=== PATIENT | male | born 1990 | race Caucasian/White ===

== ENCOUNTER 2018-01-04 06:13 | Day surgery (SDC) | payer OTHER ==
[2018-01-04] MEDS ORDERED: Propofol 10 mg/ml Inj (20 ML) ONE ×3 (07:56→08:09)
[2018-01-04] MEDS ORDERED: Midazolam 2 MG/2 ML VIAL ONE (07:57)
[2018-01-04] MEDS ORDERED: Lidocaine Hydrochloride 5 ML INJ ONE (07:58)
[2018-01-04] MEDS ORDERED: Lactated Ringer's 1,000 ML IV ONE (08:12)
--- NOTE | 2018-01-04 08:13 | CP.SDSHP ---
Same Day Surgery H & P - History Proposed Procedure: egd Pre-Op Diagnosis: Pre-operative evaluation for Bariatric surgery - Previous Medical/Surgical History Cardiac: Hypertension, Other (hypercholesterolemia) Endocrine/Metabolic: Obesity - Allergies Allergies: Allergies No Known Allergies Allergy (Verified 01/03/18 14:17) - Physical Exam General Appearance: Morbid obesity Vital Signs: Vital Signs 01/04/18 06:43 Temperature 97.7 F Pulse Rate 80 Respiratory 20 Rate Blood Pressure 150/96 H O2 Sat by Pulse 98 Oximetry Mental Status: Alert & Oriented x3 Neuro: WNL Heart: WNL Lungs: WNL GI: WNL - Impression Impression: preoperative evaluation for bariatric surgery Pt. Evaluated Today:Candidate for Anesthesia & Procedure: Yes - Date & Time Date: 01/04/18 Time: 08:13 Short Stay Discharge - Short Stay Discharge Admitting Diagnosis/Reason for Visit: MORBID OBESITY Disposition: HOME/ ROUTINE
[2018-01-04 08:46] VITALS: TEMP 99.1
[2018-01-04 09:14] VITALS: BP 118/62; PULSE 80; RESP 15; O2SAT 99
== END 2018-01-04 09:53 | disposition home or self-care (01) ==
LOC: C.ENDO 06:13
PROVIDERS: ATTEND Internal Medicine Gastroenterology
DX: Z01.818 Encounter for other preprocedural examination (principal); E66.01 Morbid (severe) obesity due to excess calories; K44.9 Diaphragmatic hernia without obstruction or gangrene; K29.00 Acute gastritis without bleeding; I10 Essential (primary) hypertension; E78.00 Pure hypercholesterolemia, unspecified
CPT/HCPCS: 43239; 88305; J2001; J2704; J7120

== ENCOUNTER 2018-03-28 17:01 | Emergency (ER) | payer OTHER ==
[2018-03-28 17:09] VITALS: BMI 61.5
[2018-03-28 17:13] VITALS: RESP 18
[2018-03-28] MEDS ORDERED: Sodium Chloride 0.9% 1,000 ML IV ONE (17:47)
--- NOTE | 2018-03-28 18:01 | C.PDOC ---
History Of Present Illness <Paula Keenan - Last Filed: 03/28/18 19:11> <Sharmila Nicole - Last Filed: 03/28/18 20:33> The patient is a 27 year old male whose PMHx includes morbid obesity and surgical history of gastric sleeve procedure done two months ago. Patient presents to the ED for evaluation of nausea and vomiting which which began 3 weeks ago. Patient has been evaluated by his surgeon, who increased his PPI to two times/day and started patient on Reglan. Patient reports his vomiting has continued and he complains of some abdominal pain. Otherwise, patient denies fever, chills, diarrhea. (Paula Keenan) History Per: Patient History/Exam Limitations: no limitations Onset/Duration Of Symptoms: Other (3 weeks ) Current Symptoms Are (Timing): Still Present Quality Of Discomfort: "Pain" Associated Symptoms: Nausea, Vomiting. denies: Fever, Chills Additional History Per: Patient <Paula Keenan - Last Filed: 03/28/18 19:11> <Sharmila Nicole - Last Filed: 03/28/18 20:33> Time Seen by Provider: 03/28/18 17:17 Chief Complaint (Nursing): GI Problem Past Medical History Reviewed: Historical Data, Nursing Documentation, Vital Signs - Medical History PMH: Bronchitis, Sleep Apnea (DX 12/2017 NO MACHINE) Denies: Chronic Kidney Disease Surgical History: Endoscopy Family History: States: Unknown Family Hx - Social History Hx Alcohol Use: No Hx Substance Use: No - Immunization History Hx Tetanus Toxoid Vaccination: No Hx Influenza Vaccination: No Hx Pneumococcal Vaccination: No <Paula Keenan - Last Filed: 03/28/18 19:11> Vital Signs: Last Vital Signs Temp 98.1 F 03/28/18 17:09 Pulse 90 03/28/18 17:09 Resp 18 03/28/18 17:09 BP 152/99 H 03/28/18 17:09 Pulse Ox 98 03/28/18 19:13 Review Of Systems Constitutional: Negative for: Fever, Chills Gastrointestinal: Positive for: Nausea, Vomiting, Abdominal Pain. Negative for : Diarrhea <Paula Keenan - Last Filed: 03/28/18 19:11> Physical Exam - Physical Exam Appears: Non-toxic, No Acute Distress, Other (morbidly obese ) Skin: Normal Color, Warm, Dry Head: Atraumatic, Normacephalic Eye(s): bilateral: Normal Inspection Oral Mucosa: Dry Neck: Supple Chest: Symmetrical, No Deformity, No Tenderness Cardiovascular: Rhythm Regular, Other (distant heart sounds ) Respiratory: Normal Breath Sounds, No Accessory Muscle Use, Other (distant lung sounds ) Gastrointestinal/Abdominal: Soft, No Tenderness, No Guarding, No Rebound Extremity: Normal ROM, Capillary Refill (less than 2 seconds ) Neurological/Psych: Oriented x3, Normal Speech, Normal Cognition <Paula Keenan - Last Filed: 03/28/18 19:11> ED Course And Treatment - Laboratory Results Result Diagrams: 03/28/18 18:08 03/28/18 18:08 O2 Sat by Pulse Oximetry: 98 (on RA) Pulse Ox Interpretation: Normal <Paula Keenan - Last Filed: 03/28/18 19:11> - Laboratory Results Result Diagrams: 03/28/18 18:08 03/28/18 18:08 Pulse Ox Interpretation: Normal Progress Note: spoke with dr sepulveda, is aware of all labs and ct results. Reevaluation Time: 20:29 Reassessment Condition: Improved <Sharmila Nicole - Last Filed: 03/28/18 20:33> Medical Decision Making <Paula Keenan - Last Filed: 03/28/18 19:11> <Sharmila Nicole - Last Filed: 03/28/18 20:33> Medical Decision Making: Impression: 27 year old male with nausea, vomiting and abdominal pain Plan: * bloodwork * urinalysis * IV Fluids * reassess and disposition Progress: Bloodwork and urinalysis ordered and reviewed. IV Fluids given. [address] Sepulveda, will get ct with iv contrast, eval for portal vein thrombosis. s/o to Dr Nicole to f/u (Paula Keenan) Disposition - Disposition Disposition Time: 19:13 <Paula Keenan - Last Filed: 03/28/18 19:11> Counseled Patient/Family Regarding: Studies Performed, Diagnosis, Need For Followup, Rx Given <Sharmila Nicole - Last Filed: 03/28/18 20:33> - Disposition Disposition: HOME/ ROUTINE Condition: STABLE Additional Instructions: Please follow up with dr Sepulveda Prescriptions: Ondansetron ODT [Zofran ODT] 1 odt PO BID PRN #15 odt PRN Reason: Nausea/Vomiting Instructions: Nausea and Vomiting, Adult (DC) Forms: [facility] [facility] (Bur[place]ian) - Clinical Impression Clinical Impression: Abdominal pain, Nausea, Vomiting - PA / DIRECTOR SECURITY RISK MANAGEMENT / Resident Statement MD/DO has reviewed & agrees with the documentation as recorded. - Scribe Statement The provider has reviewed the documentation as recorded by the Scribe (Laura Ibrahim) <Paula Keenan - Last Filed: 03/28/18 19:11> <Sharmila Nicole - Last Filed: 03/28/18 20:33> - Scribe Statement All medical record entries made by the Scribe were at my direction and personally dictated by me. I have reviewed the chart and agree that the record accurately reflects my personal performance of the history, physical exam, medical decision making, and the department course for this patient. I have also personally directed, reviewed, and agree with the discharge instructions and disposition. (Paula Keenan) Physician Patient Turnover Patient Signed Over To: Sharmila Nicole Handoff Comments: f/u ct scan and dispo accordingly <Paula Keenan - Last Filed: 03/28/18 19:11>
[2018-03-28] MEDS ORDERED: Sodium Chloride 0.9% 1,000 ML ONE (18:08)
[2018-03-28 18:12] LABS: BASO # 0.1 K/uL (0.0-0.2); BASO % 1.3 % (0.0-2.0); EOS # 0.2 K/uL (0.0-0.7); EOS % 1.9 % (0.0-4.0); HEMOGLOBIN 14.9 g/dL (12.0-18.0); LYMPH # 3.1 K/uL (1.0-4.3); LYMPH % 34.9 % (20.0-40.0); MEAN CORPUSCULAR HEMOGLOBIN 26.8 pg (27.0-31.0); MEAN CORPUSCULAR HGB CONC 33.9 g/dL (33.0-37.0); MEAN PLATELET VOLUME 8.3 fL (7.2-11.7); MONO # 0.9 K/uL (0.0-0.8); MONO % 10.6 % (0.0-10.0); NEUT # 4.5 K/uL (1.8-7.0); NEUT % 51.3 % (50.0-75.0); NRBC % 1.4 % (0.0-2.0); RBC 5.55 Mil/uL (4.40-5.90); RED CELL DISTRIBUTION WIDTH 14.6 % (11.5-14.5); WHITE BLOOD COUNT 8.8 K/uL (4.8-10.8)
[2018-03-28 18:24] LABS: ALB/GLOB RATIO 1.1 (1.0-2.1); ALBUMIN 4.2 g/dL (3.5-5.0); ALT/SGPT 57 U/L (21-72); AST/SGOT 30 U/L (17-59); BLOOD UREA NITROGEN 9 mg/dL (9-20); CALCIUM 9.4 mg/dl (8.6-10.4); GFR AFRICAN-AMERICAN > 60; GFR NON-AFRICAN AMERICAN > 60; LIPASE 189 U/L (23-300)
[2018-03-28] MEDS ORDERED: Potassium Chloride 20 mEq ER Tab PO ONE (18:38)
[2018-03-28 19:12] LABS: SQUAMOUS EPITHIAL 9 /hpf (0-5); URINE BILIRUBIN 2+ (NEGATIVE); URINE BLOOD NEGATIVE (NEGATIVE); URINE CLARITY Hazy (Clear); URINE GLUCOSE (UA) NORMAL (Normal); URINE LEUKOCYTE ESTERASE NEG Leu/uL (Negative); URINE PROTEIN 2+ mg/dL (NEGATIVE)
[2018-03-28 19:15] LABS: URINE COLOR YELLOW (YELLOW)
[2018-03-28] MEDS ORDERED: Iodixanol 320 MG/ML 100 ML BOTTLE IV ONE (19:24)
[2018-03-28] MEDS ORDERED: Potassium Chloride 10 mEq ER Tab PO STA (20:34)
[2018-03-28 20:41] VITALS: BP 112/75; PULSE 73; TEMP 98; O2SAT 100
[2018-03-29] MEDS ORDERED: Potassium Chloride 20 mEq ER Tab PO SCH (10:00)
--- NOTE | 2018-03-29 11:08 | CT ---
Date of service: 03/28/2018 PROCEDURE: CT Chest with contrast HISTORY: Epigastric pain ; hx gastric sleeve 2 m ago COMPARISON: None. TECHNIQUE: Contiguous axial images were obtained through the chest with intravenous contrast enhancement. Sagittal and coronal reconstructions were performed. Radiation dose (DLP): 1225.25 mGy-cm. This CT exam was performed using one or more of the following dose reduction techniques: Automated exposure control, adjustment of the mA and/or kV according to patient size, and/or use of iterative reconstruction technique. FINDINGS: LUNGS: The lungs are well inflated and clear. Visualized airway clear. MEDIASTINUM: The aorta is normal in caliber. Normal sized heart. No pericardial effusion. Main pulmonary artery unremarkable. No vascular congestion. No lymphadenopathy. PLEURA: No pleural fluid. No pneumothorax. BONES: No fracture. No destructive lesion. Within normal limits for the patient's age. UPPER ABDOMEN: Both adrenal glands are normal. Postsurgical changes of gastric sleeve surgery. OTHER FINDINGS: None. IMPRESSION: No acute findings. A preliminary report was provided by [facility].
== END 2018-03-28 21:03 | disposition home or self-care (01) ==
LOC: C.ER 17:01
DX: R11.2 Nausea with vomiting, unspecified (principal); R10.9 Unspecified abdominal pain; E66.01 Morbid (severe) obesity due to excess calories; Z98.84 Bariatric surgery status
CPT/HCPCS: 71260; 80053; 81001; 83690; 85025; 96361; 96374; 96375; 99285; J2405; J7030; Q9967

== ENCOUNTER 2018-04-09 15:44 | Observation (INO) | payer OTHER ==
[2018-04-09 15:44] VITALS: BMI 61.5
[2018-04-09] MEDS ORDERED: Sodium Chloride 0.9% 1,000 ML IV ONE (16:26)
[2018-04-09 16:48] LABS: BASO # 0.1 K/uL (0.0-0.2); BASO % 1.1 % (0.0-2.0); EOS # 0.2 K/uL (0.0-0.7); EOS % 2.8 % (0.0-4.0); HEMOGLOBIN 13.8 g/dL (12.0-18.0); LYMPH # 3.5 K/uL (1.0-4.3); MEAN CELL VOLUME 78.7 fL (80.0-94.0); MEAN CORPUSCULAR HEMOGLOBIN 26.6 pg (27.0-31.0); MEAN CORPUSCULAR HGB CONC 33.8 g/dL (33.0-37.0); MONO # 1.1 K/uL (0.0-0.8); MONO % 12.8 % (0.0-10.0); NEUT # 3.4 K/uL (1.8-7.0); NEUT % 41.3 % (50.0-75.0); NRBC % 0.7 % (0.0-2.0); RBC 5.16 Mil/uL (4.40-5.90); RED CELL DISTRIBUTION WIDTH 14.9 % (11.5-14.5); WHITE BLOOD COUNT 8.3 K/uL (4.8-10.8)
[2018-04-09] MEDS ORDERED: Sodium Chloride 0.9% 1,000 ML ONE (16:51)
--- NOTE | 2018-04-09 16:56 | C.PDOC ---
History Of Present Illness 27 year old male states that he had gastric bypass surgery 2 months ago. From there he was not eating or drinking normally, and felt he was progressively getting weaker. Ultimately, he was hospitalized at [place]. He was dehydrated and hypokalemic and was given an IV potassium infusion. Patient was hospitalized for several days and was discharged home. At home he had an episode of weakness and was unable to walk up some steps. He fell on both knees and was unable to get up. The fire department was called and they helped him crawl up the stairs. After several days patient continued to feel pain in both knees and weakness in his legs. Patient was seen 3 days ago at [facility]. They did X-ray' s on both knees and found no fractures. They put on leg braces, gave him crutches, and discharged him. Patient states he still can't walk and feels weak. Patient states pain is still present in his knees. Patient states he cannot stand and bare his own weight. Denies back pain , bladder/bowl changes, numbness/tingling in feet. Patient was brought by EMS who stated that he was unable to stand and romario bear or walk at home. Time Seen by Provider: 04/09/18 16:14 Chief Complaint (Nursing): Lower Extremity Problem/Injury History Per: Patient History/Exam Limitations: no limitations Onset/Duration Of Symptoms: Days Current Symptoms Are (Timing): Still Present Recent travel outside of the [facility]: No - Knee Description Of Injury: Fell Currently Unable To: Bear Weight Past Medical History Reviewed: Historical Data, Nursing Documentation, Vital Signs Vital Signs: Last Vital Signs Temp 98.8 F 04/09/18 15:55 Pulse 110 H 04/09/18 15:55 Resp 17 04/09/18 15:55 BP 129/86 04/09/18 15:55 Pulse Ox 98 04/09/18 17:40 - Medical History PMH: Bronchitis, Sleep Apnea (DX 12/2017 NO MACHINE) Denies: Chronic Kidney Disease Surgical History: Endoscopy Family History: States: No Known Family Hx - Social History Hx Alcohol Use: No Hx Substance Use: No - Immunization History Hx Tetanus Toxoid Vaccination: No Hx Influenza Vaccination: No Hx Pneumococcal Vaccination: No Review Of Systems Constitutional: Positive for: Weakness Cardiovascular: Negative for: Chest Pain Gastrointestinal: Negative for: Diarrhea, Constipation Genitourinary: Negative for: Dysuria Musculoskeletal: Positive for: Leg Pain. Negative for: Back Pain Neurological: Negative for: Weakness, Numbness Physical Exam - Physical Exam Appears: Non-toxic Skin: Warm Head: Atraumatic, Normacephalic Eye(s): bilateral: Normal Inspection Oral Mucosa: Moist Chest: Symmetrical Cardiovascular: Rhythm Regular Respiratory: Normal Breath Sounds Gastrointestinal/Abdominal: Soft, No Tenderness Back: No CVA Tenderness Extremity: Normal ROM, Tenderness (bilateral knees. No affsuion, no point tenderness), No Swelling, No Other (erythema) Extremity: Bilateral: Atraumatic, Normal ROM, Unable To Bear Weight Pulses: Left Dorsalis Pedis: Normal, Right Dorsalis Pedis: Normal Neurological/Psych: Oriented x3, Normal Speech, Normal Cognition, Normal Cranial Nerves, No Normal Motor (weakness of peripheral legs), Normal Sensation , Normal Reflexes Gait: Unable To Assess (patient unable to stand and hold his own weight.) Extremity: Right: Falls Before 10 Secs (peripheral weakness), Left: Falls Before 10 Secs, Lower: Falls Before 10 Secs ED Course And Treatment - Laboratory Results Result Diagrams: 04/09/18 16:45 04/09/18 16:45 Lab Interpretation: No Acute Changes O2 Sat by Pulse Oximetry: 98 (RA) Pulse Ox Interpretation: Normal Reevaluation Time: 17:31 Reassessment Condition: Unchanged (Patient states that he cannot stand or walk.) - Physician Consult Information Time Consulting Physician Contacted: 17:31 Physician Contacted: Fabián Ibrahim Outcome Of Conversation: Patient unable to manage at home and will be admitted for evaluation of leg weakness. Medical Decision Making Medical Decision Making: Impression: weakness in the legs. Plan: * labs * IV fluids Disposition - Disposition Disposition: HOSPITALIZED Disposition Time: 17:44 Condition: STABLE Instructions: Weakness (ED) - POA Present On Arrival: Falls Or Trauma - Clinical Impression Clinical Impression: Leg weakness, bilateral - Scribe Statement The provider has reviewed the documentation as recorded by the Germain Kenyoned Provider Attestation: All medical record entries made by the Germain were at my direction and personally dictated by me. I have reviewed the chart and agree that the record accurately reflects my personal performance of the history, physical exam, medical decision making, and the department course for this patient. I have also personally directed, reviewed, and agree with the discharge instructions and disposition.
[2018-04-09 17:04] LABS: ALB/GLOB RATIO 1.2 (1.0-2.1); ALBUMIN 4.3 g/dL (3.5-5.0); ALT/SGPT 107 U/L (21-72); AST/SGOT 58 U/L (17-59); BLOOD UREA NITROGEN 17 mg/dL (9-20); CALCIUM 9.4 mg/dl (8.6-10.4); GFR AFRICAN-AMERICAN > 60; GFR NON-AFRICAN AMERICAN > 60
[2018-04-09 19:48] VITALS: RESP 20
[2018-04-09 21:27] LABS: D DIMER < 200 ng/mlDDU (0-243); INR 1.2; PARTIAL THROMBOPLASTIN TIME 34 SECONDS (21-34); PROTHROMBIN TIME 13.5 SECONDS (9.7-12.2)
[2018-04-09] MEDS ORDERED: Enoxaparin 40 mg Syringe SC ONE (21:53)
[2018-04-09] MEDS: Sodium Chloride 0.9% 1,000 ML IV SCH (22:26)
--- NOTE | 2018-04-09 22:34 | CP.PCM.HP ---
<Lona Rinaldi - Last Filed: 04/10/18 03:02> History of Present Illness - History of Present Illness History of Present Illness: 27 yo M w/ PMHx of morbid obesity, DM2, glaucoma s/p sleeve gastrectomy(01/19) presented to ED today w/ complaints of B/L LE pain and weakness, unable to bear weight. Patient reports he is s/p sleeve at [facility], compliant w/ recommendations including vitamins/supplements, and has since had a complicated recovery. He was unable to tolerate an advance in diet and began having post prandial emesis x3 weeks. EGD revealed inadequate space to accomodate food. He reports a 100+ lb weight loss. Pt placed on Reglan and Omeprazole whiched helped. Pt also began feeling generalized weakness during this time, and weight bearing became increasingly difficult. Pt visited [facility] 04/04 w/ complaints, and had K repletion. He then sustained a fall going up stairs landing on his knees, no LOC. Pt went to [facility] 03/06 due to increasing knee pain but reports x-rays were negative. Pt now presents w/ continued weakness of LE, inability to bear weight, and B/L knee pain R>L. Pt admits to decreased sensation knee down on RLE and R calf pain. Pt has been bed bound >1 week. Pt denies chest pain, SOB, abd pain, dysuria, diarrhea, incontinence, numbness. Present on Admission - Present on Admission Any Indicators Present on Admission: No Review of Systems - Constitutional Constitutional: Frequent Falls, Weight Loss (100 lbs s/p sleeve), Weakness - Cardiovascular Cardiovascular: absent: Chest Pain, Dyspnea, Palpitations, Pedal Edema - Respiratory Respiratory: absent: Cough, Dyspnea - Gastrointestinal Gastrointestinal: Change in Bowel Habits (less frequent BM), Early Satiety, Nausea, Vomiting. absent: Abdominal Pain, Fecal Incontinence - Genitourinary Genitourinary: absent: Urinary Incontinence - Musculoskeletal Musculoskeletal: Arthralgias, Joint Swelling (R>L), Muscle Weakness, Other ( decreased sensation) - Integumentary Integumentary: Swelling - Neurological Neurological: Weakness Past Patient History - Past Medical History & Family History Past Medical History?: Yes - Past Social History Smoking Status: Never Smoked - CARDIAC Hx Cardiac Disorders: No - PULMONARY Hx Bronchitis: Yes Hx Sleep Apnea: Yes (DX 12/2017 NO MACHINE) - NEUROLOGICAL Hx Neurological Disorder: No - HEENT Hx HEENT Problems: Yes Hx Glaucoma: Yes - RENAL Hx Chronic Kidney Disease: No - ENDOCRINE/METABOLIC Hx Endocrine Disorders: No - HEMATOLOGICAL/ONCOLOGICAL Hx Blood Disorders: No - INTEGUMENTARY Hx Dermatological Problems: No - MUSCULOSKELETAL/RHEUMATOLOGICAL Hx Musculoskeletal Disorders: No - GASTROINTESTINAL Hx Gastrointestinal Disorders: No - GENITOURINARY/GYNECOLOGICAL Hx Genitourinary Disorders: No - PSYCHIATRIC Hx Substance Use: No - SURGICAL HISTORY Other/Comment: gastric sleeve 01/18/2018 - ANESTHESIA Hx Anesthesia: Yes Hx Anesthesia Reactions: No Hx Malignant Hyperthermia: No Meds Allergies/Adverse Reactions: Allergies Allergy/AdvReac Type Severity Reaction Status Date / Time No Known Allergies Allergy Verified 04/09/18 16:00 Physical Exam - Constitutional Appears: Well, Non-toxic, No Acute Distress - Head Exam Head Exam: ATRAUMATIC, NORMAL INSPECTION, NORMOCEPHALIC - Eye Exam Eye Exam: EOMI, Normal appearance - ENT Exam ENT Exam: Mucous Membranes Moist, Normal Exam - Respiratory Exam Respiratory Exam: Clear to Auscultation Bilateral, NORMAL BREATHING PATTERN. absent: Rhonchi, Wheezes - Cardiovascular Exam Cardiovascular Exam: REGULAR RHYTHM, +S1, +S2 - GI/Abdominal Exam GI & Abdominal Exam: Normal Bowel Sounds, Soft. absent: Distended, Tenderness - Extremities Exam Extremities exam: Positive for: calf tenderness, joint swelling, normal capillary refill, pedal pulses present (right calf tenderness). Negative for: pedal edema - Back Exam Back exam: NORMAL INSPECTION. absent: tenderness Results - Vital Signs Recent Vital Signs: Last Vital Signs Temp 98 F 04/09/18 19:40 Pulse 92 H 04/09/18 19:40 Resp 20 04/09/18 19:40 BP 112/71 04/09/18 19:40 Pulse Ox 98 04/09/18 19:40 - Labs Result Diagrams: 04/09/18 16:45 04/09/18 16:45 Labs: Laboratory Results - last 24 hr 04/09/18 04/09/18 04/09/18 15:53 16:45 16:45 WBC 8.3 RBC 5.16 Hgb 13.8 Hct 40.6 MCV 78.7 L MCH 26.6 L MCHC 33.8 RDW 14.9 H Plt Count 392 MPV 8.0 Neut % (Auto) 41.3 L Lymph % (Auto) 42.0 H Runnels % (Auto) 12.8 H Eos % (Auto) 2.8 Baso % (Auto) 1.1 Neut # (Auto) 3.4 Lymph # (Auto) 3.5 Runnels # (Auto) 1.1 H Eos # (Auto) 0.2 Baso # (Auto) 0.1 PT INR APTT D-Dimer, Quantitative Sodium 139 Potassium 3.9 Chloride 102 Carbon Dioxide 23 Anion Gap 19 BUN 17 Creatinine 0.7 L Est GFR ( Amer) > 60 Est GFR (Non-Af Amer) > 60 POC Glucose (mg/dL) 117 H Random Glucose 119 H Calcium 9.4 Total Bilirubin 1.3 AST 58 ALT 107 H D Alkaline Phosphatase 93 Total Creatine Kinase 40 L Total Protein 7.7 Albumin 4.3 Globulin 3.5 Albumin/Globulin Ratio 1.2 04/09/18 20:27 WBC RBC Hgb Hct MCV MCH MCHC RDW Plt Count MPV Neut % (Auto) Lymph % (Auto) Runnels % (Auto) Eos % (Auto) Baso % (Auto) Neut # (Auto) Lymph # (Auto) Runnels # (Auto) Eos # (Auto) Baso # (Auto) PT 13.5 H INR 1.2 APTT 34 D-Dimer, Quantitative < 200 Sodium Potassium Chloride Carbon Dioxide Anion Gap BUN Creatinine Est GFR ( Amer) Est GFR (Non-Af Amer) POC Glucose (mg/dL) Random Glucose Calcium Total Bilirubin AST ALT Alkaline Phosphatase Total Creatine Kinase Total Protein Albumin Globulin Albumin/Globulin Ratio Assessment & Plan - Assessment and Plan (Free Text) Assessment: 27 yo M w/ PMHx of DM2 and glaucoma, s/p lap sleeve gastrectomy admitted w/ LE weakness 2/2 maltrunition. 1. Malnutrition 2/2 sleeve gastrectomy -multivitamins -f/u b12, folate, iron labs -small bariatric meals as tolerated -f/u am labs, replete as needed -nutrition referral 2. Emesis 2/2 sleeve gastrectomy -reglan 10mg BID 3. r/o DVT-right calf tenderness -D-dimer <200 -no indication for further workup 4. s/p fall 2/2 weakness 2/2 malnutrition -fall precautions -PT -OT -obtain x-rays from [facility] 5. DM2 -resolved s/p sleeve gastrectomy 6. Glaucoma -timolol .5% OU 7. Ppx -lovenox 40sc -protonix 40mg PO -fall risk Dispo: Pt in need of CESIA - Date & Time Date: 04/09/18 Time: 20:05 Decision To Admit - Pt Status Changed To: Hospital Disposition Of: Observation - . Bed Request Type: Regular <Misael Ma - Last Filed: 04/10/18 06:02> Results - Vital Signs Recent Vital Signs: Last Vital Signs Temp 98.1 F 04/09/18 23:27 Pulse 85 04/09/18 23:27 Resp 20 04/09/18 23:27 BP 145/82 04/09/18 23:27 Pulse Ox 99 04/09/18 23:27 - Labs Result Diagrams: 04/09/18 16:45 04/09/18 16:45 Labs: Laboratory Results - last 24 hr 04/09/18 04/09/18 04/09/18 15:53 16:45 16:45 WBC 8.3 RBC 5.16 Hgb 13.8 Hct 40.6 MCV 78.7 L MCH 26.6 L MCHC 33.8 RDW 14.9 H Plt Count 392 MPV 8.0 Neut % (Auto) 41.3 L Lymph % (Auto) 42.0 H Runnels % (Auto) 12.8 H Eos % (Auto) 2.8 Baso % (Auto) 1.1 Neut # (Auto) 3.4 Lymph # (Auto) 3.5 Runnels # (Auto) 1.1 H Eos # (Auto) 0.2 Baso # (Auto) 0.1 PT INR APTT D-Dimer, Quantitative Sodium 139 Potassium 3.9 Chloride 102 Carbon Dioxide 23 Anion Gap 19 BUN 17 Creatinine 0.7 L Est GFR ( Amer) > 60 Est GFR (Non-Af Amer) > 60 POC Glucose (mg/dL) 117 H Random Glucose 119 H Calcium 9.4 Total Bilirubin 1.3 AST 58 ALT 107 H D Alkaline Phosphatase 93 Total Creatine Kinase 40 L Total Protein 7.7 Albumin 4.3 Globulin 3.5 Albumin/Globulin Ratio 1.2 04/09/18 20:27 WBC RBC Hgb Hct MCV MCH MCHC RDW Plt Count MPV Neut % (Auto) Lymph % (Auto) Runnels % (Auto) Eos % (Auto) Baso % (Auto) Neut # (Auto) Lymph # (Auto) Runnels # (Auto) Eos # (Auto) Baso # (Auto) PT 13.5 H INR 1.2 APTT 34 D-Dimer, Quantitative < 200 Sodium Potassium Chloride Carbon Dioxide Anion Gap BUN Creatinine Est GFR ( Amer) Est GFR (Non-Af Amer) POC Glucose (mg/dL) Random Glucose Calcium Total Bilirubin AST ALT Alkaline Phosphatase Total Creatine Kinase Total Protein Albumin Globulin Albumin/Globulin Ratio Assessment & Plan - Date & Time Date: 04/10/18 (I have seen and examined the patient. I agree with the findings and plan of care as documented by Dr. Rinaldi. Patient with malnutrition , poor intake s/p sleeve gastrectomy. Nutrition consult. Ensure with meals. Treat patient's nausea to improve intake. Recent fall onto knees due to general weakness likely secondary to malnutrition. Contact [facility] for recent scans. If unable to obtain, will order new Xrays of knees. Monitor for acute changes.) Time: 05:58 Attending/Attestation - Attestation I have personally seen and examined this patient.: Yes I have fully participated in the care of the patient.: Yes I have reviewed all pertinent clinical information: Yes
[2018-04-10] MEDS: Sodium Chloride 0.9% 1,000 ML IV SCH ×2 (05:51→14:00)
[2018-04-10 08:40] LABS: IRON 48 ug/dL (49-181)
[2018-04-10 08:49] LABS: % IRON SATURATION 23 (20-55); TOTAL IRON BINDING CAPACITY 207 ug/dL (250-450)
[2018-04-10] MEDS: Enoxaparin 40 mg Syringe SC SCH (09:26)
[2018-04-10] MEDS: Multiple Vitamins Tab PO SCH (09:27)
[2018-04-10] MEDS: Pantoprazole 40 mg EC Tab PO SCH (09:27)
[2018-04-10 09:46] LABS: FOLATE 7.1 ng/mL
[2018-04-10 11:20] LABS: BASO # 0.1 K/uL (0.0-0.2); BASO % 0.8 % (0.0-2.0); EOS # 0.3 K/uL (0.0-0.7); HEMOGLOBIN 12.2 g/dL (12.0-18.0); LYMPH # 3.6 K/uL (1.0-4.3); LYMPH % 41.6 % (20.0-40.0); MEAN CORPUSCULAR HEMOGLOBIN 26.9 pg (27.0-31.0); MEAN PLATELET VOLUME 8.1 fL (7.2-11.7); MONO # 1.2 K/uL (0.0-0.8); MONO % 13.9 % (0.0-10.0); NEUT # 3.5 K/uL (1.8-7.0); NEUT % 40.7 % (50.0-75.0); NRBC % 0.3 % (0.0-2.0); PLATELET COUNT 381 K/uL (130-400); RBC 4.55 Mil/uL (4.40-5.90); RED CELL DISTRIBUTION WIDTH 14.7 % (11.5-14.5); WHITE BLOOD COUNT 8.6 K/uL (4.8-10.8)
[2018-04-10 11:35] LABS: ALB/GLOB RATIO 1.2 (1.0-2.1); ALBUMIN 3.8 g/dL (3.5-5.0); ALT/SGPT 95 U/L (21-72); AST/SGOT 42 U/L (17-59); BLOOD UREA NITROGEN 14 mg/dL (9-20); CALCIUM 9.1 mg/dl (8.6-10.4); GFR AFRICAN-AMERICAN > 60; GFR NON-AFRICAN AMERICAN > 60
[2018-04-10 12:08] LABS: BANDS 3 % (0-2); EOSINOPHIL 2 % (0-4); LYMPHOCYTE 45 % (20-40); MONOCYTE 13 % (0-10); NEUTROPHIL 37 % (50-75); TOTAL CELLS COUNTED 100
[2018-04-10 12:09] LABS: ANISOCYTOSIS SLIGHT; LARGE PLATELETS PRESENT; OVALOCYTES SLIGHT; PLATELET ESTIMATE NORMAL (NORMAL)
--- NOTE | 2018-04-10 17:08 | CP.PCM.PN ---
Subjective - Date & Time of Evaluation Date of Evaluation: 04/10/18 Time of Evaluation: 07:00 - Subjective Subjective: PGY2- Progress Note for Dr. Harper Patient seen and examined at bedside. Patient says he is still very weak. Patient cannot walk around. Patient says he can only eat small amounts at a time. Patient says he has no improvement as compared to yesterday. Patient denies any chest pain, shortness of breath, abdominal pain, nausea, vomiting, or constipation. Objective - Vital Signs/Intake and Output Vital Signs (last 24 hours): Temp Pulse Resp BP Pulse Ox 98.6 F 77 20 142/87 98 04/10/18 16:00 04/10/18 16:00 04/10/18 16:00 04/10/18 16:00 04/10/18 16:00 Intake and Output: 04/10/18 04/10/18 06:59 18:59 Intake Total 1240 Output Total 500 Balance 740 - Medications Medications: Current Medications Enoxaparin Sodium (Lovenox) 40 mg SC DAILY [facility] Last Admin: 04/10/18 09:26 Dose: 40 mg Sodium Chloride (Sodium Chloride 0.9%) 1,000 mls @ 125 mls/hr IV .Q8H [facility] Last Admin: 04/10/18 14:00 Dose: 125 mls/hr Metoclopramide HCl (Reglan) 10 mg PO BID [facility] Last Admin: 04/10/18 09:27 Dose: 10 mg Multivitamins (Hexavitamin) 1 tab PO DAILY [facility] Last Admin: 04/10/18 09:27 Dose: 1 tab Pantoprazole Sodium (Protonix Ec Tab) 40 mg PO DAILY [facility] Last Admin: 04/10/18 09:27 Dose: 40 mg Pneumococcal Polyvalent Vaccine (Pneumovax 23 Vaccine) 0.5 ml IM .ONCE ONE Stop: 04/12/18 10:01 Timolol Maleate (Timoptic 0.5% Ophth Soln) 1 drop OU BID [facility] Last Admin: 04/10/18 09:25 Dose: 1 drop - Labs Labs: 04/10/18 11:12 04/10/18 11:12 PT 13.5 SECONDS (9.7-12.2) H 04/09/18 20:27 INR 1.2 04/09/18 20:27 APTT 34 SECONDS (21-34) 04/09/18 20:27 - Constitutional Appears: Non-toxic, No Acute Distress, Other (morbid obesity ) - Head Exam Head Exam: ATRAUMATIC, NORMAL INSPECTION, NORMOCEPHALIC - Eye Exam Eye Exam: EOMI, Normal appearance - ENT Exam ENT Exam: Mucous Membranes Moist - Respiratory Exam Respiratory Exam: Decreased Breath Sounds, NORMAL BREATHING PATTERN - Cardiovascular Exam Cardiovascular Exam: REGULAR RHYTHM, RRR, +S1, +S2 - GI/Abdominal Exam GI & Abdominal Exam: Soft, Normal Bowel Sounds. absent: Tenderness - Extremities Exam Extremities Exam: Normal Inspection. absent: Tenderness - Neurological Exam Neurological Exam: Alert, Awake, Oriented x3 - Psychiatric Exam Psychiatric exam: Normal Affect, Normal Mood - Skin Skin Exam: Intact, Normal Color, Warm Assessment and Plan - Assessment and Plan (Free Text) Assessment: Malnutrition 2/2 sleeve gastrectomy -multivitamins -b12: 969 -folate: 7.1 - Iron: 48, TIBC: 207, %sat: 23 -small bariatric meals as tolerated -f/u am labs, replete as needed -nutrition referral Emesis 2/2 sleeve gastrectomy -reglan 10mg BID r/o DVT -D-dimer <200 -f/u LE b/l dopplers s/p fall 2/2 weakness 2/2 malnutrition -fall precautions -PT -OT -[place] [facility] Vitamin D deficiency Vit D 18.8 Vit D 50,000 u weekly for 12 weeks DM2 -resolved s/p sleeve gastrectomy Glaucoma -timolol .5% OU Ppx -lovenox 40sc -protonix 40mg PO -fall risk Dispo: Pt in need of [facility] Discussed with Dr. Harper
[2018-04-10] MEDS ORDERED: Ergocalciferol 50,000 Intl Units Cap PO SCH (18:15)
[2018-04-11 08:13] LABS: BASO # 0.1 K/uL (0.0-0.2); BASO % 0.7 % (0.0-2.0); EOS # 0.3 K/uL (0.0-0.7); EOS % 3.4 % (0.0-4.0); HEMOGLOBIN 12.4 g/dL (12.0-18.0); LYMPH # 3.9 K/uL (1.0-4.3); LYMPH % 40.7 % (20.0-40.0); MEAN CELL VOLUME 78.6 fL (80.0-94.0); MEAN CORPUSCULAR HEMOGLOBIN 27.1 pg (27.0-31.0); MEAN CORPUSCULAR HGB CONC 34.5 g/dL (33.0-37.0); MEAN PLATELET VOLUME 8.1 fL (7.2-11.7); MONO # 1.1 K/uL (0.0-0.8); MONO % 11.4 % (0.0-10.0); NEUT # 4.2 K/uL (1.8-7.0); NEUT % 43.8 % (50.0-75.0); NRBC % 0.2 % (0.0-2.0); RBC 4.57 Mil/uL (4.40-5.90); RED CELL DISTRIBUTION WIDTH 14.5 % (11.5-14.5); WHITE BLOOD COUNT 9.7 K/uL (4.8-10.8)
[2018-04-11 08:17] LABS: ALB/GLOB RATIO 1.2 (1.0-2.1); ALBUMIN 3.8 g/dL (3.5-5.0); ALT/SGPT 90 U/L (21-72); AST/SGOT 45 U/L (17-59); BLOOD UREA NITROGEN 11 mg/dL (9-20); CALCIUM 9.3 mg/dl (8.6-10.4); GFR AFRICAN-AMERICAN > 60; GFR NON-AFRICAN AMERICAN > 60
[2018-04-11] MEDS: Enoxaparin 40 mg Syringe SC SCH (10:23)
[2018-04-11] MEDS: Pantoprazole 40 mg EC Tab PO SCH (10:23)
[2018-04-11] MEDS: Multiple Vitamins Tab PO SCH (10:23)
--- NOTE | 2018-04-11 13:10 | CP.PCM.PN ---
Subjective - Date & Time of Evaluation Date of Evaluation: 04/11/18 Time of Evaluation: 07:00 - Subjective Subjective: PGY2- Progress Note for Dr. Lovett Patient seen and examined at bedside. Patient says he still has the weak sensation in his legs. Patient admits to sometimes feeling dizzy if he tries to get up. Patient denies any headache, shortness of breath, chest pain, abdominal pain, nausea, vomiting, constipation, or diarrhea. Objective - Vital Signs/Intake and Output Vital Signs (last 24 hours): Temp Pulse Resp BP Pulse Ox 98.8 F 92 H 20 144/79 97 04/11/18 08:02 04/11/18 08:02 04/11/18 08:02 04/11/18 08:02 04/11/18 08:02 Intake and Output: 04/11/18 04/11/18 06:59 18:59 Intake Total 240 Output Total 500 Balance -260 - Medications Medications: Current Medications Enoxaparin Sodium (Lovenox) 40 mg SC DAILY [facility] Last Admin: 04/11/18 10:23 Dose: 40 mg Ergocalciferol (Drisdol 50,000 Intl Units Cap) 1 cap PO Q7D [facility] Stop: 06/26/18 18:16 Last Admin: 04/10/18 21:29 Dose: 1 cap Potassium Chloride (Potassium Chloride 10 Meq/100 Ml) 10 meq in 100 mls @ 100 mls/hr IVPB ONCE ONE Stop: 04/11/18 14:02 Metoclopramide HCl (Reglan) 5 mg IVP Q6H [facility] Multivitamins (Hexavitamin) 1 tab PO DAILY [facility] Last Admin: 04/11/18 10:23 Dose: 1 tab Pantoprazole Sodium (Protonix Inj) 40 mg IVP DAILY [facility] Pneumococcal Polyvalent Vaccine (Pneumovax 23 Vaccine) 0.5 ml IM .ONCE ONE Stop: 04/12/18 10:01 Timolol Maleate (Timoptic 0.5% Oph Soln) 1 drop OU BID [facility] Last Admin: 04/10/18 17:30 Dose: 1 drop - Labs Labs: 04/11/18 07:42 04/11/18 07:42 PT 13.5 SECONDS (9.7-12.2) H 04/09/18 20:27 INR 1.2 04/09/18 20:27 APTT 34 SECONDS (21-34) 04/09/18 20:27 - Additional Findings Additional findings: - Constitutional Appears: Non-toxic, No Acute Distress, Other (morbid obesity ) - Head Exam Head Exam: ATRAUMATIC, NORMAL INSPECTION, NORMOCEPHALIC - Eye Exam Eye Exam: EOMI, Normal appearance - ENT Exam ENT Exam: Mucous Membranes Moist - Respiratory Exam Respiratory Exam: Decreased Breath Sounds, NORMAL BREATHING PATTERN - Cardiovascular Exam Cardiovascular Exam: REGULAR RHYTHM, RRR, +S1, +S2 - GI/Abdominal Exam GI & Abdominal Exam: Soft, Normal Bowel Sounds. absent: Tenderness - Extremities Exam Extremities Exam: Normal Inspection. 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 Ozuna consulted, help appreciated upper gi series with small bowel follow through ordered based on results may need endoscopy with Dr. Ozuna on Wednesday (04/13) -reglan 5mg ivp q6h Emesis 2/2 sleeve gastrectomy -reglan 5mg ivp q6h r/o DVT -D-dimer <200 -f/u LE b/l dopplers s/p fall 2/2 weakness 2/2 malnutrition -fall precautions -PT -OT -f/u lumbar spine xray Vitamin D deficiency Vit D 18.8 Vit D 50,000 u weekly for 12 weeks DM2 -resolved s/p sleeve gastrectomy Glaucoma -timolol .5% OU Ppx -lovenox 40sc -protonix 40mg ivp daily -fall risk -PT recommends acute rehab -OT Discussed with Dr. Lovett
[2018-04-12 06:04] LABS: BASO # 0.1 K/uL (0.0-0.2); BASO % 0.6 % (0.0-2.0); EOS # 0.3 K/uL (0.0-0.7); EOS % 3.4 % (0.0-4.0); HEMOGLOBIN 12.5 g/dL (12.0-18.0); LYMPH # 3.6 K/uL (1.0-4.3); LYMPH % 40.8 % (20.0-40.0); MEAN CELL VOLUME 78.5 fL (80.0-94.0); MEAN CORPUSCULAR HGB CONC 34.3 g/dL (33.0-37.0); MEAN PLATELET VOLUME 7.9 fL (7.2-11.7); MONO % 11.3 % (0.0-10.0); NEUT # 3.9 K/uL (1.8-7.0); NEUT % 43.9 % (50.0-75.0); NRBC % 0.2 % (0.0-2.0); RBC 4.65 Mil/uL (4.40-5.90); RED CELL DISTRIBUTION WIDTH 14.4 % (11.5-14.5); WHITE BLOOD COUNT 8.8 K/uL (4.8-10.8)
[2018-04-12 07:31] LABS: ALB/GLOB RATIO 1.2 (1.0-2.1); ALBUMIN 3.8 g/dL (3.5-5.0); ALT/SGPT 88 U/L (21-72); AST/SGOT 63 U/L (17-59); BLOOD UREA NITROGEN 13 mg/dL (9-20); CALCIUM 9.3 mg/dl (8.6-10.4); GFR AFRICAN-AMERICAN > 60; GFR NON-AFRICAN AMERICAN > 60
[2018-04-12] MEDS: Enoxaparin 40 mg Syringe SC SCH (09:59)
[2018-04-12] MEDS: Multiple Vitamins Tab PO SCH (09:59)
[2018-04-12] MEDS ORDERED: Pneumococcal 23-Valent Vaccine IM ONE (10:00)
[2018-04-12] MEDS ORDERED: Barium Sulfate for Susp 96% w/w 176g Bottle PR ONE ×2 (10:17→10:18)
[2018-04-12] MEDS ORDERED: Barium Sulfate for Susp 98% w/w 340g Bottle ONE (10:18)
--- NOTE | 2018-04-12 10:29 | CP.PCM.PN ---
Subjective - Date & Time of Evaluation Date of Evaluation: 04/12/18 Time of Evaluation: 07:00 - Subjective Subjective: PGY3- Progress Note for Dr. Turcios: Patient seen and examined at bedside. Patient says he is still very weak and says he has no improvement as compared to yesterday. PAtient has GI exam done today but will be transferred to [facility] under the care of bariatric surgery there. He admits to bilateral knee pain since his fall 2 weeks ago. Patient denies any chest pain, shortness of breath, abdominal pain, nausea, vomiting, or constipation. Objective - Vital Signs/Intake and Output Vital Signs (last 24 hours): Temp Pulse Resp BP Pulse Ox 97.8 F 90 20 123/74 97 04/12/18 07:51 04/12/18 07:51 04/12/18 07:51 04/12/18 07:51 04/12/18 07:51 - Medications Medications: Current Medications Enoxaparin Sodium (Lovenox) 40 mg SC DAILY [facility] Last Admin: 04/12/18 09:59 Dose: 40 mg Ergocalciferol (Drisdol 50,000 Intl Units Cap) 1 cap PO Q7D [facility] Stop: 06/26/18 18:16 Last Admin: 04/10/18 21:29 Dose: 1 cap Potassium Chloride (Potassium Chloride 20 Meq/100 Ml) 20 meq in 100 mls @ 50 mls/hr IVPB ONCE ONE Stop: 04/12/18 12:08 Metoclopramide HCl (Reglan) 5 mg IVP Q6H [facility] Last Admin: 04/12/18 05:58 Dose: 5 mg Multivitamins (Hexavitamin) 1 tab PO DAILY [facility] Last Admin: 04/12/18 09:59 Dose: Not Given Pantoprazole Sodium (Protonix Inj) 40 mg IVP DAILY [facility] Last Admin: 04/12/18 09:38 Dose: 40 mg Timolol Maleate (Timoptic 0.5% Oph Soln) 1 drop OU BID [facility] Last Admin: 04/12/18 09:38 Dose: 1 drop - Labs Labs: 04/12/18 05:57 04/12/18 05:57 PT 13.5 SECONDS (9.7-12.2) H 04/09/18 20:27 INR 1.2 04/09/18 20:27 APTT 34 SECONDS (21-34) 04/09/18 20:27 - Constitutional Appears: Non-toxic, No Acute Distress, Chronically Ill, Other - Head Exam Head Exam: ATRAUMATIC, NORMAL INSPECTION - Eye Exam Eye Exam: EOMI, PERRL Pupil Exam: NORMAL ACCOMODATION - ENT Exam ENT Exam: Mucous Membranes Moist - Respiratory Exam Respiratory Exam: Clear to Ausculation Bilateral, NORMAL BREATHING PATTERN. absent: Respiratory Distress - Cardiovascular Exam Cardiovascular Exam: REGULAR RHYTHM, +S1, +S2 - GI/Abdominal Exam GI & Abdominal Exam: Soft, Tenderness, Hypoactive Bowel Sounds. absent: Distended, Firm, Guarding - Extremities Exam Extremities Exam: Normal Inspection - Back Exam Back Exam: NORMAL INSPECTION - Neurological Exam Neurological Exam: Alert, Awake, Oriented x3 - Psychiatric Exam Psychiatric exam: Normal Affect, Normal Mood Assessment and Plan - Assessment and Plan (Free Text) Assessment: PATIENT TO BE TRANSFERRED. Patient is to be transferred via ACLS vehicle to [facility] under the care of Dr. Bower (bariatric surgery). Patient information was sent to the [facility] physician. This transfer is deemed necessary as [facility] [place] does not have barbaric surgery. Emtala signed and placed in chart. Arrangements pending. Continue current medications. Malnutrition 2/2 sleeve gastrectomy -multivitamins -b12: 969 -folate: 7.1 - Iron: 48, TIBC: 207, %sat: 23 -small bariatric meals as tolerated -nutrition referral Gastric Outlet Obstruction 2/2 sleeve gastrectomy GI, Dr. Ozuna consulted, help appreciated upper gi series with small bowel follow through ordered - f/u results based on results may need endoscopy with Dr. Ozuna on Wednesday (04/13) -reglan 5mg ivp q6h Emesis 2/2 sleeve gastrectomy -reglan 5mg ivp q6h Transaminitis AST 63, ALT 88 f/u hepatitis profile Hypokalemia K 3.5, 20 meq KVL IV given r/o DVT -D-dimer <200 -f/u LE b/l dopplers s/p fall 2/2 weakness 2/2 malnutrition -fall precautions - Pt/OT -lumbar spine xray - early disc space narrowing L5-S1 -Knee Xray - no acute fracture, possible R knee effusion Vitamin D deficiency Vit D 18.8 Vit D 50,000 u weekly for 12 weeks DM2 -resolved s/p sleeve gastrectomy Glaucoma -timolol .5% OU Ppx -Lovenox 40sc daily -Protonix 40mg ivp daily -fall risk protocol -PT/OT - recommending acute rehab All orders and management per Dr. Turcios. Bebe Machuca DO PGY 3
--- NOTE | 2018-04-12 12:27 | RAD ---
Date of service: 04/12/2018 PROCEDURE: Radiographs of the Lumbar Spine. HISTORY: s/p fall r/o fracture COMPARISON: No prior. FINDINGS: BONES: Normal alignment. No listhesis. No fracture. DISC SPACES: L5-S1 disc space narrowing OTHER FINDINGS: Surgical clips over T12-L1 vertebrae on frontal view IMPRESSION: No fracture. Early disc space narrowing and or rudimentary disc space L5-S1.
--- NOTE | 2018-04-12 13:32 | RAD ---
Date of service: 04/12/2018 PROCEDURE: Bilateral Knee Radiographs. HISTORY: s/p fall 2 weeks ago COMPARISON: None. FINDINGS: BONES: Right Knee: No fracture Left Knee: No fracture JOINTS: Right Knee: No significant appearing osteoarthritis. Left knee: No significant appearing osteoarthrosis SOFT TISSUES: Right Knee: Normal. Left Knee: Normal. JOINT EFFUSION: Right Knee: Small right effusion possible Left Knee: None. OTHER FINDINGS: None. IMPRESSION: No fracture or dislocation. Possible small right knee joint effusion
--- NOTE | 2018-04-12 15:01 | VASCLAB ---
Date of service: 04/12/2018 PROCEDURE: Lower Extremity Venous Duplex Exam. HISTORY: Pain in limb, immobile, morbid obesity PRIORS: None. TECHNIQUE: Bilateral common femoral, femoral, popliteal and posterior tibial, peroneal and great saphenous veins were evaluated. Flow was assessed with color Doppler, compressibility, assessment of phasic flow and augmentation response. Report prepared by Nikos Neville, BS, RVT FINDINGS: RIGHT: 1. Common Femoral Vein: 1.1. Compressibility - Fully compressible: Thrombus - None : Flow - Phasic: Augmentation -Normal: Reflux - None. 2. Femoral Vein: 2.1. Compressibility - Fully compressible: Thrombus - None : Flow - Phasic: Augmentation -Normal: Reflux - None. 3. Popliteal Vein: 3.1. Compressibility - Fully compressible: Thrombus - None : Flow - Phasic: Augmentation -Normal: Reflux - None. 4. Posterior Tibial Vein: 4.1. Compressibility - Fully compressible: Thrombus - None: Flow - Phasic: Augmentation -Normal: Reflux - None. 5. Peroneal Vein: 5.1. Compressibility - Fully compressible: Thrombus - None: Flow - Phasic: Augmentation -Normal: Reflux - None. 6. Great Saphenous Vein: 6.1. Compressibility - Fully compressible: Thrombus - None: Flow - Phasic: Augmentation - Normal: Reflux - None. LEFT: 1. Common Femoral Vein: 1.1. Compressibility - Fully compressible: Thrombus - None: Flow - Phasic: Augmentation -Normal: Reflux - None. 2. Femoral Vein: 2.1. Compressibility - Fully compressible: Thrombus - None: Flow - Phasic: Augmentation -Normal: Reflux - None. 3. Popliteal Vein: 3.1. Compressibility - Fully compressible: Thrombus - None : Flow - Phasic: Augmentation -Normal: Reflux - None. 4. Posterior Tibial Vein: 4.1. Compressibility - Fully compressible: Thrombus - None: Flow - Phasic: Augmentation -Normal: Reflux - None. 5. Peroneal Vein: 5.1. Compressibility - Fully compressible: Thrombus - None: Flow - Phasic: Augmentation -Normal: Reflux - None. 6. Great Saphenous Vein: 6.1. Compressibility - Fully compressible: Thrombus - None: Flow - Phasic: Augmentation - Normal: Reflux - None. OTHER FINDINGS: Right: None significant. Left: None significant. IMPRESSION: Right: No evidence of deep or superficial vein thrombosis of the right lower extremity. Normal valve function noted of the right side. Left: No evidence of deep or superficial vein thrombosis of the left lower extremity. Normal valve function noted of the left side.
--- NOTE | 2018-04-12 15:18 | RAD ---
Date of service: 04/12/2018 PROCEDURE: Limited single contrast upper GI series with small bowel follow-through HISTORY: Gastric outlet obstruction. Prior gastric sleeve procedure. COMPARISON: None available. TECHNIQUE: Fluoroscopic evaluation of the esophagus stomach and small bowel was performed following administration of oral contrast. FINDINGS: Limited single contrast upper GI series with small bowel follow-through was performed. Patient swallowed contrast without difficulty. Contrast flowed freely through the esophagus, surgical site at the stomach, and into the proximal small bowel without evidence of leak or extravasation. Contrast flowed freely into the mid small bowel. Exam was subsequently terminated secondary to patient discomfort. Impression: Limited study for evaluation for obstruction or leak. No evidence of postsurgical leak or obstruction at the surgical site. Contrast flowed into the mid small bowel. Exam was subsequently terminated secondary to patient discomfort and non tolerance. Please note evaluation for mucosal abnormality was markedly limited given the patient disposition.
--- NOTE | 2018-04-12 18:48 | PN ---
Copied To: Chevy Randle MD Attending MD: Chevy Randle MD DATE: 04/12/2018 LOCATION: 369, bed B. SUBJECTIVE: This is a 27-year-old male seen and examined in rounds, appeared to be awake, alert, and oriented. He still complained of generalized lower extremities pain and abdominal pain with difficulty of tolerating oral intake,upper GI series with small bowel flow was done, report is pending. Most recent lab results showed normal CBC with potassium 3.5 with increased ALT 88 and AST 63. PHYSICAL EXAMINATION: GENERAL: A 27-year-old male, awake, alert, oriented. VITAL SIGNS: Afebrile with stable vital signs. The patient is afebrile with pulse of 86, respiratory rate 20 to 22, blood pressure 120/72. HEENT: Showed pale, dry oral mucous membrane. Nonicteric sclerae. LUNGS: Few scattered mild crepitation. Decreased air entry at bases. HEART: Positive S1 and S2. ABDOMEN: Soft, mildly obese with mild distention. Bowel sounds are present with generalized tenderness. EXTREMITIES: With lower extremity edematous changes. No clubbing or cyanosis. DRUM SANDER OFFBEARER: No reported new neurological deficits, sensory or motor. IMPRESSION: 1. Positive for lower extremities weakness to rule out lumbar spine lesion. 2. Obesity. 3. Status post gastric bypass surgery. Complicated with gastric outlet partial obstruction. SUGGESTIONS: 1. Continue current management. 2. The patient may need upper endoscopy with dilation post-radiology study results. Further recommendation to follow. Chevy Randle MD
--- NOTE | 2018-04-12 21:50 | CON ---
Copied To: Chevy Randle MD Attending MD: Chevy Randle MD DATE: 04/11/[address] Randle to . I was called for GI consultation by the covering medical MD. The patient is seen and fully examined on 04/11/2018, as requested by the admitting medical staff. The entire chart is reviewed including but not limited to the most recent lab and radiology study results, current and the previous medication list, current and the previous medical events. HISTORY OF PRESENT ILLNESS: This is a 27-year-old male, who was admitted to the hospital through the emergency room post gastric bypass surgery about 2 months ago with loss of appetite, unable to drink or eat adequately post surgery with a main complaint of generalized weakness and malaise. Unable to compensation administrator his lower extremities for the last few days prior to his admission. No reported active bleeding, but with a complaint of severe bilateral knee pain, lower back pain. PAST MEDICAL HISTORY: Includin. Obesity. 2. Status post gastric surgery. 3. Peptic ulcer disease. 4. Recurrent episodes of bronchitis with sleep apnea. 5. The patient had endoscopic evaluation of the upper GI tract several months ago prior to his surgery. FAMILY HISTORY: Unknown. SOCIAL HISTORY: No known recent history of cigarette smoking or alcohol abuse. ALLERGY TO MEDICATIONS: UNCLEAR. Initial blood workup post admission showed normal CBC with normal SMA-7, but low creatinine with blood glucose level of 119. Denies any chest pain, palpitation or significant shortness of breath. Denied any chills or fever. PHYSICAL EXAMINATION: GENERAL: A 27-year-old male, awake, alert, and oriented. Afebrile. VITAL SIGNS: Pulses is 96, respiratory rate 20 to 22, blood pressure of 124/80. HEENT: Showed dry, oral mucoid membrane. Nonicteric sclerae. LUNGS: Few scattered crepitations. Decreased air entry at bases. HEART: Positive S1 and S2 with increased rate. ABDOMEN: Obese with mild generalized tenderness. No mass or organomegaly. No rebound tenderness or guarding. EXTREMITIES: With lower extremity edematous changes with tenderness of both knees as well as both hips, the patient is still complaining of LS spine tenderness. PLC TECHNICIAN: No reported new neurological deficits, sensory, or motor. No reported new focal deficits. It has to be mentioned that the patient recently about 2 months ago had upper endoscopy, was told that he might have narrowing of the gastric outlet, for which he may need dilation post surgically. IMPRESSION: 1. Partial gastric outlet obstruction post gastric bypass surgery. 2. Reexacerbation of peptic ulcer disease. 3. Positive for bilateral knee pain. The patient is unable to stand on his own lower extremities that could be to injury both knees versus lumbosacral spine. Rest of past medical history as mentioned above. SUGGESTIONS: 1. Agree with your plan. 2. Reglan IV. 3. Upper GI small bowel follow-through for estimation and more details about the patient post surgically. 4. The patient may need upper endoscopy with small-bowel dye. The patient would like to be scheduled later on when the patient is more stable clinically. Thank you for letting me participate in your patient's case management. Again, the patient will need upper endoscopy with balloon dilation of the gastric outlet. We will follow up closely with you. Chevy Randle MD
[2018-04-13 07:17] LABS: BASO % 0.4 % (0.0-2.0); EOS # 0.3 K/uL (0.0-0.7); EOS % 3.3 % (0.0-4.0); HEMOGLOBIN 12.6 g/dL (12.0-18.0); LYMPH # 3.2 K/uL (1.0-4.3); LYMPH % 37.9 % (20.0-40.0); MEAN CELL VOLUME 79.4 fL (80.0-94.0); MEAN CORPUSCULAR HEMOGLOBIN 26.9 pg (27.0-31.0); MEAN CORPUSCULAR HGB CONC 33.9 g/dL (33.0-37.0); MEAN PLATELET VOLUME 8.4 fL (7.2-11.7); MONO % 12.1 % (0.0-10.0); NEUT # 3.9 K/uL (1.8-7.0); NEUT % 46.3 % (50.0-75.0); NRBC % 0.1 % (0.0-2.0); RBC 4.7 Mil/uL (4.40-5.90); RED CELL DISTRIBUTION WIDTH 14.6 % (11.5-14.5); WHITE BLOOD COUNT 8.3 K/uL (4.8-10.8)
[2018-04-13 07:41] LABS: ALB/GLOB RATIO 1.1 (1.0-2.1); ALBUMIN 3.7 g/dL (3.5-5.0); ALT/SGPT 102 U/L (21-72); AST/SGOT 76 U/L (17-59); BLOOD UREA NITROGEN 15 mg/dL (9-20); CALCIUM 9.1 mg/dl (8.6-10.4); GFR AFRICAN-AMERICAN > 60; GFR NON-AFRICAN AMERICAN > 60
[2018-04-13 07:46] LABS: HEPATITIS B SURFACE AG Negative (NEGATIVE)
[2018-04-13 07:52] LABS: HEPATITIS A IGM NEGATIVE (NEGATIVE); HEPATITIS B CORE AB NEGATIVE (NEGATIVE)
[2018-04-13 08:03] LABS: HEPATITIS C ANTIBODY NEGATIVE (NEGATIVE)
[2018-04-13] MEDS: Multiple Vitamins Tab PO SCH (10:31)
[2018-04-13] MEDS: Enoxaparin 40 mg Syringe SC SCH (10:31)
--- NOTE | 2018-04-13 11:13 | CP.PCM.PN ---
Subjective - Date & Time of Evaluation Date of Evaluation: 04/13/18 Time of Evaluation: 08:35 - Subjective Subjective: PGY3- Progress Note for Dr. Turcios: Patient seen and examined at bedside. Patient says he is still very weak and says he has no improvement as compared to yesterday. No changes in status. No acute events overnight. Still complains of mild knee pain. Patient is able to tolerate bariatric full liquid diet. Patient denies any chest pain, shortness of breath, abdominal pain, nausea, vomiting, or constipation. Objective - Vital Signs/Intake and Output Vital Signs (last 24 hours): Temp Pulse Resp BP Pulse Ox 98.1 F 98 H 20 143/84 96 04/13/18 07:00 04/13/18 07:00 04/13/18 07:00 04/13/18 07:00 04/13/18 07:00 Intake and Output: 04/13/18 04/13/18 06:59 18:59 Intake Total 500 Output Total 450 Balance 50 - Medications Medications: Current Medications Enoxaparin Sodium (Lovenox) 40 mg SC DAILY [facility] Last Admin: 04/13/18 10:31 Dose: 40 mg Ergocalciferol (Drisdol 50,000 Intl Units Cap) 1 cap PO Q7D [facility] Stop: 06/26/18 18:16 Last Admin: 04/10/18 21:29 Dose: 1 cap Metoclopramide HCl (Reglan) 5 mg IVP Q6H [facility] Last Admin: 04/13/18 06:01 Dose: 5 mg Multivitamins (Hexavitamin) 1 tab PO DAILY [facility] Last Admin: 04/13/18 10:31 Dose: 1 tab Pantoprazole Sodium (Protonix Inj) 40 mg IVP DAILY [facility] Last Admin: 04/13/18 10:30 Dose: 40 mg Timolol Maleate (Timoptic 0.5% Oph Soln) 1 drop OU BID [facility] Last Admin: 04/13/18 10:30 Dose: 1 drop - Labs Labs: 04/13/18 06:52 04/13/18 06:52 PT 13.5 SECONDS (9.7-12.2) H 04/09/18 20:27 INR 1.2 04/09/18 20:27 APTT 34 SECONDS (21-34) 04/09/18 20:27 - Constitutional Appears: Non-toxic, No Acute Distress - Head Exam Head Exam: ATRAUMATIC, NORMAL INSPECTION - Eye Exam Eye Exam: EOMI, PERRL Pupil Exam: NORMAL ACCOMODATION - ENT Exam ENT Exam: Mucous Membranes Moist - Respiratory Exam Respiratory Exam: Clear to Ausculation Bilateral, NORMAL BREATHING PATTERN. absent: Respiratory Distress - GI/Abdominal Exam GI & Abdominal Exam: Soft, Hypoactive Bowel Sounds. absent: Distended, Firm, Guarding, Tenderness Additional comments: obese - Extremities Exam Extremities Exam: Normal Inspection - Back Exam Back Exam: NORMAL INSPECTION - Neurological Exam Neurological Exam: Alert, Awake, Oriented x3 - Psychiatric Exam Psychiatric exam: Normal Affect, Normal Mood Assessment and Plan - Assessment and Plan (Free Text) Assessment: PATIENT TO BE TRANSFERRED - pending bed placement Patient is to be transferred via ACL[facility] vehicle to [facility] under the care of Dr. Bower (bariatric surgery). Patient information was sent to the [facility] physician. This transfer is deemed necessary as [facility] does not have barbaric surgery. Emtala signed and placed in chart. Arrangements pending. Continue current medications. Malnutrition 2/2 sleeve gastrectomy -TPN started with added trace elements and MV -b12: 969 -folate: 7.1 - Iron: 48, TIBC: 207, %sat: 23 -small bariatric full liquid diet as tolerated -nutrition referral Gastric Outlet Obstruction 2/2 sleeve gastrectomy GI, Dr. Ozuna consulted, help appreciated Upper GI Series was inconclusive, was not a good study and was terminated because the patient had pain based on results may need endoscopy with Dr. Ozuna on Wednesday (04/13) -reglan 5mg ivp q6h Emesis 2/2 sleeve gastrectomy -reglan 5mg ivp q6h Transaminitis Hepatitis panel negative Uptrending monitor r/o DVT -D-dimer <200 -Negative for DVT s/p fall 2/2 weakness 2/2 malnutrition -fall precautions - Pt/OT -lumbar spine xray - early disc space narrowing L5-S1 -Knee Xray - no acute fracture, possible R knee effusion Vitamin D deficiency Vit D 18.8 Vit D 50,000 u weekly for 12 weeks DM2 -resolved s/p sleeve gastrectomy Glaucoma -timolol .5% OU Ppx -Lovenox 40sc daily -Protonix 40mg ivp daily -fall risk protocol -PT/OT - Morphine 2mg IVP prn severe pain All orders and management per Dr. Turcios. Bebe Machuca DO PGY 3
[2018-04-13 16:19] VITALS: BP 133/83; PULSE 84; TEMP 98; O2SAT 97
--- NOTE | 2018-04-13 16:55 | PN ---
Copied To: Chevy Randle MD Attending MD: Cehvy Randle MD DATE: 04/13/2018 LOCATION: 369, bed B. SUBJECTIVE: This is a 27-year-old male seen and examined in rounds without significant clinical changes or reported active bleeding with dyspepsia, but less nausea without reported chest pain, palpitation or significant shortness of breath. It has to be mentioned that this case discussed at length with Dr. Turcios today and the patient is to be transferred to another medical institution for surgical reevaluation despite he had been complaining of generalized weakness and malaise lower extremities. The entire chart is reviewed including but not limited to the most recent lab and radiology study results, current and the previous medication list, current and the previous medical events. All the radiology study results seen. Today's lab showed normal hemoglobin and hematocrit with normal white blood cells and platelet count with CO2 content of 21 indicative of metabolic acidosis with AST of 76, ALT 102 with vitamin B12 elevated and low vitamin D total. PHYSICAL EXAMINATION: GENERAL: A 27-year-old male, awake, alert, oriented. VITAL SIGNS: Afebrile with pulse of 94, respiratory rate 20 to 22, blood pressure 130/80. HEENT: Showed pale, dry oral mucous membrane. Nonicteric sclerae. LUNGS: Few scattered crepitation. Decreased air entry at bases. HEART: Positive S1 and S2. ABDOMEN: Soft with mild generalized tenderness. No mass or organomegaly. No rebound tenderness or guarding, mildly obese. EXTREMITIES: Lower extremity edematous changes. No clubbing or cyanosis. NEUROLOGIC: No reported new neurological deficits. IMPRESSION: 1. Status post gastric bypass surgery. 2. Obesity, by history. 3. Abnormal radiology study results of the lower extremities as well as upper gastrointestinal tract. 4. Abnormal liver function tests, could be secondary to starvation versus drug induced. The possibility of viral hepatitis should be ruled in or out. SUGGESTIONS: 1. Agree with your plan. 2. Antireflux measure. 3. Surgical followup as requested by the admitting medical staff. No aggressive GI workup in the meantime despite the patient will need upper endoscopy with dilation of the gastric outlet. 4. Further recommendation to follow if the patient stays in the hospital furthermore. Chevy Randle MD [facility] # [id number]
[2018-04-13] MEDS ORDERED: PPN #1 IV ONE (18:00)
== END 2018-04-13 20:30 | disposition short-term general hospital (02) ==
LOC: C.ER 15:44 → C.3T 17:59 → INTOOBSV 04-13 16:54 → OBSVTOIN 04-13 16:54
PROVIDERS: ADMIT Internal Medicine Pulmonary Disease; ATTEND Internal Medicine Pulmonary Disease
DX: E86.0 Dehydration (principal); K31.1 Adult hypertrophic pyloric stenosis; E87.2 Acidosis; E87.6 Hypokalemia; G47.30 Sleep apnea, unspecified; H40.9 Unspecified glaucoma; E66.01 Morbid (severe) obesity due to excess calories; E55.9 Vitamin D deficiency, unspecified; E11.9 Type 2 diabetes mellitus without complications; Z91.81 History of falling; Z98.84 Bariatric surgery status; Z68.44 Body mass index [BMI] 60.0-69.9, adult; K27.9 Peptic ulcer, site unspecified, unspecified as acute or chronic, without hemorrhage or perforation; Z74.01 Bed confinement status
CPT/HCPCS: 36415; 72100; 73562; 74245; 80053; 80074; 82306; 82550; 82607; 82746; 82948; 83540; 83550; 83735; 84100; 84134; 84145; 84378; 85025; 85378; 85610; 85730; 90471; 90732; 93970; 96360; 97110; 97161; 97167; 97530; 99285; C9113; G0378; G8981; G8982; G8987; G8988; J1650; J2270; J2765; J3480; J7030

== ENCOUNTER 2018-05-18 12:47 | Emergency (ER) | payer OTHER ==
[2018-05-18 12:47] VITALS: BMI 61.5
--- NOTE | 2018-05-18 14:05 | C.PDOC ---
History Of Present Illness 27 year old male with a Hx of morbid obesity presents to the ER with a complaint of persistent pain to the right knee and decrease ability to walk secondary to pain. Patient was admitted here for several days in April 2018 for decreased ability to walk, [facility] and from [facility] to [facility]hab for 3 weeks. While at rehab he received physical therapy and was improving but was discharged yesterday because "the insurance ran out". He now states he is unable to take care of himself, he cannot walk on his own, and has no one to help him with his daily activities. Otherwise patient denies recent injury, weakness, or numbness. Time Seen by Provider: 05/18/18 13:35 Chief Complaint (Nursing): Medical Clearance History Per: Patient History/Exam Limitations: no limitations Onset/Duration Of Symptoms: Days Current Symptoms Are (Timing): Still Present Recent travel outside of the [place]: No Past Medical History Reviewed: Historical Data, Nursing Documentation, Vital Signs Vital Signs: Last Vital Signs Temp 98 F 05/18/18 13:18 Pulse 98 H 05/18/18 13:18 Resp 18 05/18/18 13:18 BP 123/89 05/18/18 13:18 Pulse Ox 99 05/18/18 14:29 - Medical History PMH: Bronchitis, Sleep Apnea (DX 12/2017 NO MACHINE) Denies: Chronic Kidney Disease Surgical History: Endoscopy Family History: States: Unknown Family Hx - Social History Hx Alcohol Use: No Hx Substance Use: No - Immunization History Hx Tetanus Toxoid Vaccination: No Hx Influenza Vaccination: No Hx Pneumococcal Vaccination: No Review Of Systems Constitutional: Negative for: Fever, Chills Cardiovascular: Negative for: Chest Pain, Palpitations Respiratory: Negative for: Cough, Shortness of Breath Gastrointestinal: Negative for: Nausea, Vomiting Musculoskeletal: Positive for: Leg Pain Neurological: Negative for: Weakness, Numbness Physical Exam - Physical Exam Appears: Non-toxic, Other (Morbidly obese) Skin: Normal Color, Warm, Dry Head: Atraumatic, Normacephalic Eye(s): bilateral: Normal Inspection Oral Mucosa: Moist Neck: Normal, Supple Chest: Symmetrical, No Tenderness Cardiovascular: Rhythm Regular Respiratory: Normal Breath Sounds, No Rales, No Rhonchi, No Wheezing Gastrointestinal/Abdominal: Soft, No Tenderness Back: No CVA Tenderness Extremity: Normal ROM (x4), No Tenderness, No Deformity, No Swelling Pulses: Left Dorsalis Pedis: Normal, Right Dorsalis Pedis: Normal Neurological/Psych: Oriented x3, Normal Speech, Normal Motor, Normal Sensation ED Course And Treatment - Laboratory Results Result Diagrams: 05/18/18 14:10 05/18/18 14:10 Lab Interpretation: No Acute Changes (Mild decreased K+ and Mg+) O2 Sat by Pulse Oximetry: 99 (room air) Pulse Ox Interpretation: Normal Progress Note: Urinalysis and blood work ordered. Patient referred to high risk case manager and social work. He has home assistance arranged. Reevaluation Time: 15:21 Reassessment Condition: Improved (Patient in no distress) Disposition Counseled Patient/Family Regarding: Studies Performed, Diagnosis, Need For Followup - Disposition Referrals: Meche Turcios MD [Staff Provider] - Disposition: HOME/ ROUTINE Disposition Time: 15:22 Condition: STABLE Additional Instructions: Encourage activity as tolerated. Instructions: Obesity, Adult, Weakness (ED) Forms: [facility] (Kiswahili) - Clinical Impression Clinical Impression: Obese body habitus, Leg weakness, bilateral - Scribe Statement The provider has reviewed the documentation as recorded by the Scribe Nikos Rodriguez All medical record entries made by the Scribe were at my direction and personally dictated by me. I have reviewed the chart and agree that the record accurately reflects my personal performance of the history, physical exam, medical decision making, and the department course for this patient. I have also personally directed, reviewed, and agree with the discharge instructions and disposition.
[2018-05-18 14:15] LABS: BASO % 0.3 % (0.0-2.0); EOS # 0.1 K/uL (0.0-0.7); EOS % 1.2 % (0.0-4.0); HEMOGLOBIN 14.2 g/dL (12.0-18.0); LYMPH # 3.2 K/uL (1.0-4.3); LYMPH % 43.6 % (20.0-40.0); MEAN CELL VOLUME 82.9 fL (80.0-94.0); MEAN CORPUSCULAR HEMOGLOBIN 28.5 pg (27.0-31.0); MEAN CORPUSCULAR HGB CONC 34.3 g/dL (33.0-37.0); MEAN PLATELET VOLUME 8.2 fL (7.2-11.7); MONO # 0.7 K/uL (0.0-0.8); MONO % 9.1 % (0.0-10.0); NEUT # 3.4 K/uL (1.8-7.0); NEUT % 45.8 % (50.0-75.0); NRBC % 0.1 % (0.0-2.0); RED CELL DISTRIBUTION WIDTH 16.8 % (11.5-14.5); WHITE BLOOD COUNT 7.4 K/uL (4.8-10.8)
[2018-05-18 14:27] LABS: ALB/GLOB RATIO 1.2 (1.0-2.1); ALBUMIN 4.3 g/dL (3.5-5.0); ALT/SGPT 112 U/L (21-72); AST/SGOT 48 U/L (17-59); BLOOD UREA NITROGEN 9 mg/dL (9-20); GFR NON-AFRICAN AMERICAN > 60
[2018-05-18] MEDS ORDERED: Potassium Chloride 20 mEq ER Tab PO STA (15:24)
[2018-05-18] MEDS ORDERED: Magnesium Oxide 400 mg Tab UD PO STA (15:27)
[2018-05-18] MEDS ORDERED: Potassium Chloride 20 mEq ER Tab PO ONE (15:52)
[2018-05-18 19:55] VITALS: BP 129/75; PULSE 69; RESP 16; TEMP 97.8; O2SAT 98
== END 2018-05-18 19:54 | disposition home or self-care (01) ==
LOC: C.ER 12:47
DX: R53.1 Weakness (principal); E66.01 Morbid (severe) obesity due to excess calories

== ENCOUNTER 2018-11-28 10:09 | Outpatient (CLI) | payer OTHER | END 2018-11-28 10:10 | disposition home or self-care (01) | LOC: C.MRIC 10:09 | DX: G95.29 Other cord compression (principal) ==